=== PATIENT | male | born 1990 | race Caucasian/White ===

== ENCOUNTER 2021-11-29 22:21 | Emergency (ER) | payer MEDICAID ==
[~2021-11-29] VITALS: Ht 188 cm; Wt 112.4 kg
[~2021-11-29 22:21] MED LIST: METH-360 PO
[2021-11-29 23:18] VITALS: BP 169/118
[2021-11-30] MEDS ORDERED: acetaminophen 325mg tablet PO ONE (00:05)
[2021-11-30] MEDS ORDERED: ketorolac tromethamine 15mg/ml inj. IM ONE (00:05)
[2021-11-30] MEDS ORDERED: dexamethasone 4mg tablet PO ONE (00:05)
[2021-11-30] MEDS ORDERED: amoxicillin 250mg capsule PO ONE (00:05)
[2021-11-30] MEDS ORDERED: HYDR-3965 PO (00:06)
[2021-11-30] MEDS ORDERED: AMOX500C2 PO (00:06)
[2021-11-30] MEDS ORDERED: ONDA4TAB6 PO (00:06)
[2021-11-30] MEDS ORDERED: METH4TAB81 PO (00:06)
== END 2021-11-30 00:24 | disposition home or self-care (01) ==
LOC: ER 22:22
DX: K08.89 Other specified disorders of teeth and supporting structures (principal); K02.9 Dental caries, unspecified; K04.7 Periapical abscess without sinus; R41.0 Disorientation, unspecified; Z98.890 Other specified postprocedural states; Z79.2 Long term (current) use of antibiotics; Z79.899 Other long term (current) drug therapy
CPT/HCPCS: 96372; 99284; J1885

== ENCOUNTER 2023-05-13 06:49 | Emergency (ER) | payer MEDICAID ==
[~2023-05-13] VITALS: Ht 188 cm; Wt 113.6 kg
[~2023-05-13 06:49] MED LIST changes: +METH4TAB81 PO; +ONDA4TAB6 PO
[2023-05-13 07:45] LABS: CLARITY,URINE SLIGHTLY CLOUDY (Clear); COLOR,URINE YELLOW (Yellow); GLUCOSE, URINE NEGATIVE (Neg); KETONES,URINE NEGATIVE (Neg); LEUKOCYTE ESTERASE ,URINE NEGATIVE (Neg); NITRITES, URINE NEGATIVE (Neg); OCCULT BLOOD,URINE LARGE (Neg); PH,URINE 5.5 (4.8-8.0); PROTEIN,URINE TRACE mg/dl (Neg); UA COLLECTION TYPE CLN CATCH MIDSTREAM; UROBILINOGEN,URINE 0.2 E.U/dL (0.2-1.0)
[2023-05-13 07:56] LABS: BACTERIA,URINE 1+ /HPF (Neg); MUCUS STRANDS MODERATE /LPF (Neg); RBC,URINE TNTC /HPF (0-2); SQUAMOUS EPITHELIAL CELL,UR MODERATE /LPF (FEW)
[2023-05-13] MEDS ORDERED: normal saline 1000ML IV soln IVB ONE ×2 (08:50→09:25)
[2023-05-13] MEDS ORDERED: ketorolac trometh. 30mg/ml inj. IV ONE (08:50)
[2023-05-13] MEDS ORDERED: ondansetron/PF 4mg/2ml inj IV ONE (08:50)
[2023-05-13 08:56] LABS: BASOPHILS # (AUTO) 0.1 X10'3 (0-0.2); BASOPHILS % (AUTO) 0.8 % (0-1); EOSINOPHILS # (AUTO) 0.1 X10'3 (0-0.9); HEMOGLOBIN 15.7 g/dl (14.0-17.9); LYMPHOCYTES # (AUTO) 1.8 X10'3 (1.1-4.8); LYMPHOCYTES % (AUTO) 26.4 % (21-51); MEAN CORPUSCULAR HEMOGLOBIN 30.7 PG (27.0-31.0); MEAN CORPUSCULAR HGB CONC 34.2 g/dL (33.0-36.5); MEAN CORPUSCULAR VOLUME 89.9 FL (78-98); MEAN PLATELET VOLUME 8.2 FL (7.4-10.4); MONOCYTES # (AUTO) 0.5 X10'3 (0-0.9); MONOCYTES % (AUTO) 6.6 % (2-12); NEUTROPHILS # (AUTO) 4.5 X10'3 (1.8-7.7); NEUTROPHILS % (AUTO) 64.2 % (42-75); PLATELET COUNT 183 X10'3 (140-440); RED BLOOD COUNT 5.12 X10'6 (4.70-6.10); RED CELL DISTRIBUTION WIDTH 12.9 % (11.5-14.5)
[2023-05-13] MEDS ORDERED: tamsulosin 0.4mg capsule PO STA (09:22)
[2023-05-13] MEDS ORDERED: oxyCODONE/APAP 5-325mg tablet PO ONE (09:25)
[2023-05-13] MEDS ORDERED: OXYC-145 PO (09:30)
[2023-05-13] MEDS ORDERED: NAPR-56 PO (09:30)
[2023-05-13] MEDS ORDERED: FLO0.4C PO (09:30)
[2023-05-13] MEDS ORDERED: ONDA4TAB12 PO (09:30)
--- NOTE | 2023-05-13 09:41 | NUR ---
leslye approved pt to take percocet at home. 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
[2023-05-13 10:50] VITALS: BP 156/89
[2023-05-13 11:29] LABS: ALANINE AMINOTRANSFERASE 157 U/L (12-78); ALBUMIN 4.2 G/DL (3.4-5.0); ALBUMIN/GLOBULIN RATIO 1.2 (1.1-1.5); ALKALINE PHOSPHATASE 85 IU/L (46-116); ANION GAP 10 (8-16); ASPARTATE AMINO TRANSFERASE 55 U/L (10-37); BILIRUBIN,TOTAL 0.6 MG/DL (0.1-1.0); BLOOD UREA NITROGEN 12 MG/DL (7-18); BUN/CREATININE RATIO 12.4 (10.0-20.0); CALCIUM 8.9 MG/DL (8.5-10.1); CHLORIDE 107 MMOL/L (99-107); CREATININE 0.97 MG/DL (0.60-1.10); GLUCOSE 152 MG/DL (70-104); POTASSIUM 4.3 MMOL/L (3.5-5.1); SODIUM 140 MMOL/L (135-145); TOTAL CARBON DIOXIDE 23.3 MMOL/L (24-32); TOTAL PROTEIN 7.6 G/DL (6.4-8.2); eGFR 89 ML/MIN
[2023-05-13 11:50] LABS: LIPASE 88 U/L (73-393)
== END 2023-05-13 10:51 | disposition home or self-care (01) ==
LOC: ER 06:50
DX: N20.0 Calculus of kidney (principal); Z98.890 Other specified postprocedural states; Z72.89 Other problems related to lifestyle; Z79.899 Other long term (current) drug therapy
CPT/HCPCS: 36415; 74176; 80053; 81001; 83690; 85025; 87088; 96374; 96375; 99285; J1885; J2405; J7030

== ENCOUNTER 2023-05-18 09:29 | Emergency (ER) | payer MEDICAID ==
[~2023-05-18] VITALS: Ht 188 cm; Wt 118.2 kg
[~2023-05-18 09:29] MED LIST changes: +FLO0.4C PO; +NAPR-56 PO; +ONDA4TAB12 PO; +OXYC-145 PO
[2023-05-18] MEDS ORDERED: tamsulosin 0.4mg capsule PO STA (12:18)
[2023-05-18] MEDS ORDERED: normal saline 1000ML IV soln IV ONE (12:20)
[2023-05-18] MEDS ORDERED: ondansetron/PF 4mg/2ml inj IV ONE (12:25)
[2023-05-18] MEDS ORDERED: ketorolac trometh. 30mg/ml inj. IV ONE (12:25)
[2023-05-18 12:35] LABS: BASOPHILS # (AUTO) 0.1 X10'3 (0-0.2); BASOPHILS % (AUTO) 0.7 % (0-1); EOSINOPHILS # (AUTO) 0.1 X10'3 (0-0.9); EOSINOPHILS % (AUTO) 1.2 % (0-6); HEMATOCRIT 48.6 % (42.0-52.0); HEMOGLOBIN 16.5 g/dl (14.0-17.9); LYMPHOCYTES % (AUTO) 17.9 % (21-51); MEAN CORPUSCULAR HEMOGLOBIN 30.4 PG (27.0-31.0); MEAN CORPUSCULAR HGB CONC 33.9 g/dL (33.0-36.5); MEAN CORPUSCULAR VOLUME 89.4 FL (78-98); MEAN PLATELET VOLUME 8.2 FL (7.4-10.4); MONOCYTES # (AUTO) 1.1 X10'3 (0-0.9); NEUTROPHILS % (AUTO) 70.2 % (42-75); PLATELET COUNT 205 X10'3 (140-440); RED BLOOD COUNT 5.43 X10'6 (4.70-6.10); RED CELL DISTRIBUTION WIDTH 12.8 % (11.5-14.5); WHITE BLOOD COUNT 11.4 X10'3 (4.5-11.0)
[2023-05-18 12:45] LABS: ALANINE AMINOTRANSFERASE 142 U/L (12-78); ALBUMIN 4.5 G/DL (3.4-5.0); ALBUMIN/GLOBULIN RATIO 1.4 (1.1-1.5); ALKALINE PHOSPHATASE 89 IU/L (46-116); ANION GAP 12 (8-16); ASPARTATE AMINO TRANSFERASE 50 U/L (10-37); BILIRUBIN,TOTAL 0.6 MG/DL (0.1-1.0); BLOOD UREA NITROGEN 11 MG/DL (7-18); BUN/CREATININE RATIO 8.7 (10.0-20.0); CALCIUM 9.2 MG/DL (8.5-10.1); CHLORIDE 103 MMOL/L (99-107); CREATININE 1.27 MG/DL (0.60-1.10); GLUCOSE 122 MG/DL (70-104); POTASSIUM 4.4 MMOL/L (3.5-5.1); SODIUM 141 MMOL/L (135-145); TOTAL CARBON DIOXIDE 26.3 MMOL/L (24-32); TOTAL PROTEIN 7.8 G/DL (6.4-8.2); eGFR 65 ML/MIN
[2023-05-18] MEDS ORDERED: oxyCODONE/APAP 5-325mg tablet PO ONE (13:50)
[2023-05-18 14:03] LABS: CLARITY,URINE CLEAR (Clear); COLOR,URINE YELLOW (Yellow); GLUCOSE, URINE NEGATIVE (Neg); KETONES,URINE NEGATIVE (Neg); LEUKOCYTE ESTERASE ,URINE NEGATIVE (Neg); NITRITES, URINE NEGATIVE (Neg); OCCULT BLOOD,URINE SMALL (Neg); PROTEIN,URINE NEGATIVE (Neg); UROBILINOGEN,URINE 0.2 E.U/dL (0.2-1.0)
[2023-05-18 14:05] LABS: UA COLLECTION TYPE CLN CATCH MIDSTREAM
[2023-05-18 14:13] LABS: MUCUS STRANDS MODERATE /LPF (Neg); SQUAMOUS EPITHELIAL CELL,UR FEW /LPF (FEW)
[2023-05-18 14:14] LABS: BACTERIA,URINE FEW /HPF (Neg)
[2023-05-18 14:15] LABS: WBC,URINE 0-4 /HPF (0-4)
[2023-05-18] MEDS ORDERED: cloNIDine 0.1 mg tablet PO ONE (14:35)
[2023-05-18] MEDS ORDERED: ONDA4TAB12 PO (14:54)
[2023-05-18] MEDS ORDERED: OXYC-145 PO (14:54)
[2023-05-18] MEDS ORDERED: LISI20TA28 PO (14:56)
[2023-05-18 15:17] VITALS: BP 170/96
== END 2023-05-18 15:17 | disposition home or self-care (01) ==
LOC: ER 09:30
DX: N20.0 Calculus of kidney (principal); I10 Essential (primary) hypertension
CPT/HCPCS: 36415; 76770; 80053; 81001; 84145; 85025; 96374; 96375; 99285; J1885; J2405; J7030

== ENCOUNTER 2024-07-14 17:47 | Emergency (ER) | payer MEDICAID ==
[~2024-07-14] VITALS: Ht 188 cm; Wt 111.5 kg
[~2024-07-14 17:47] MED LIST changes: -FLO0.4C PO; -NAPR-56 PO; +ONDA-243 PO; -ONDA4TAB12 PO
[2024-07-14 18:20] LABS: BASOPHILS # (AUTO) 0.1 X10'3 (0-0.2); BASOPHILS % (AUTO) 0.9 % (0-1); EOSINOPHILS # (AUTO) 0.2 X10'3 (0-0.9); EOSINOPHILS % (AUTO) 2.4 % (0-6); HEMATOCRIT 41.8 % (42.0-52.0); HEMOGLOBIN 14.2 g/dl (14.0-17.9); LYMPHOCYTES # (AUTO) 2.9 X10'3 (1.1-4.8); LYMPHOCYTES % (AUTO) 36.1 % (21-51); MEAN CORPUSCULAR HEMOGLOBIN 30.2 PG (27.0-31.0); MEAN CORPUSCULAR HGB CONC 33.9 g/dL (33.0-36.5); MEAN CORPUSCULAR VOLUME 89.1 FL (78-98); MEAN PLATELET VOLUME 7.8 FL (7.4-10.4); MONOCYTES # (AUTO) 0.8 X10'3 (0-0.9); MONOCYTES % (AUTO) 9.8 % (2-12); NEUTROPHILS # (AUTO) 4.1 X10'3 (1.8-7.7); NEUTROPHILS % (AUTO) 50.8 % (42-75); PLATELET COUNT 207 X10'3 (140-440); RED BLOOD COUNT 4.69 X10'6 (4.70-6.10); RED CELL DISTRIBUTION WIDTH 13.2 % (11.5-14.5)
[2024-07-14 18:30] LABS: BILIRUBIN,URINE NEGATIVE (Neg); CLARITY,URINE SLIGHTLY CLOUDY (Clear); COLOR,URINE YELLOW (Yellow); GLUCOSE, URINE NEGATIVE (Neg); KETONES,URINE NEGATIVE (Neg); LEUKOCYTE ESTERASE ,URINE NEGATIVE (Neg); NITRITES, URINE NEGATIVE (Neg); OCCULT BLOOD,URINE MODERATE (Neg); PH,URINE 5.5 (4.8-8.0); PROTEIN,URINE TRACE mg/dl (Neg); UROBILINOGEN,URINE 0.2 E.U/dL (0.2-1.0)
[2024-07-14 18:41] LABS: UA COLLECTION TYPE NON-SPECIFIED
[2024-07-14] MEDS: phenazopyridine 100mg tablet PO ONE (18:44)
[2024-07-14] MEDS: ketorolac trometh 15mg/ml vial 15 MG/ML ML IM ONE (18:44)
[2024-07-14 18:45] LABS: BACTERIA,URINE FEW /HPF (Neg); MUCUS STRANDS FEW /LPF (Neg); RBC,URINE 20-50 /HPF (0-2); SQUAMOUS EPITHELIAL CELL,UR FEW /LPF (FEW); WBC,URINE 0-4 /HPF (0-4)
[2024-07-14 18:45] LABS: ALANINE AMINOTRANSFERASE 104 U/L (12-78); ALBUMIN 4.1 G/DL (3.4-5.0); ALBUMIN/GLOBULIN RATIO 1.3 (1.1-1.5); ALKALINE PHOSPHATASE 60 IU/L (46-116); ANION GAP 10 (8-16); ASPARTATE AMINO TRANSFERASE 43 U/L (10-37); BILIRUBIN,TOTAL 0.7 MG/DL (0.1-1.0); BLOOD UREA NITROGEN 11 MG/DL (7-18); BUN/CREATININE RATIO 10.9 (10.0-20.0); CALCIUM 8.9 MG/DL (8.5-10.1); CHLORIDE 107 MMOL/L (99-107); CREATININE 1.01 MG/DL (0.60-1.10); GLUCOSE 119 MG/DL (70-104); POTASSIUM 3.8 MMOL/L (3.5-5.1); SODIUM 142 MMOL/L (135-145); TOTAL CARBON DIOXIDE 25.3 MMOL/L (24-32); TOTAL PROTEIN 7.3 G/DL (6.4-8.2); eCRCL 119 ML/MIN; eGFR 84 ML/MIN
[2024-07-14] MEDS: ondansetron 4mg rapidly disintigrating tab PO ONE (18:48)
[2024-07-14] MEDS ORDERED: PHEN-716 PO (18:55)
[2024-07-14 19:17] VITALS: BP 137/89; PULSE 88; RESP 16; TEMP 98.8; O2SAT 98
== END 2024-07-14 19:20 | disposition home or self-care (01) ==
LOC: ER 17:47
DX: N23 Unspecified renal colic (principal); Z79.899 Other long term (current) drug therapy
CPT/HCPCS: 36415; 80053; 81001; 85025; 96372; 99283; J1885

== ENCOUNTER 2024-08-02 16:38 | Emergency (ER) | payer MEDICAID ==
[~2024-08-02] VITALS: Ht 188 cm; Wt 108.7 kg
[~2024-08-02 16:38] MED LIST changes: +PHEN-716 PO
[2024-08-02 17:20] LABS: COLOR,URINE ORANGE (Yellow); UA COLLECTION TYPE CLN CATCH MIDSTREAM
[2024-08-02 17:21] LABS: CLARITY,URINE SLIGHTLY CLOUDY (Clear)
[2024-08-02 17:27] LABS: SQUAMOUS EPITHELIAL CELL,UR FEW /LPF (FEW)
[2024-08-02 17:31] LABS: WBC,URINE 0-4 /HPF (0-4)
[2024-08-02 17:32] LABS: BACTERIA,URINE FEW /HPF (Neg)
[2024-08-02] MEDS ORDERED: ondansetron/PF 4mg/2ml inj IV ONE (18:05)
[2024-08-02] MEDS ORDERED: ketorolac trometh 15mg/ml vial 15 MG/ML ML IV ONE (18:05)
[2024-08-02] MEDS ORDERED: ketorolac trometh 30MG/ML vial 30 MG/ML VIAL IV ONE (18:10)
[2024-08-02 18:11] LABS: BASOPHILS # (AUTO) 0.1 X10'3 (0-0.2); BASOPHILS % (AUTO) 0.5 % (0-1); EOSINOPHILS # (AUTO) 0.3 X10'3 (0-0.9); EOSINOPHILS % (AUTO) 2.3 % (0-6); HEMATOCRIT 42.9 % (42.0-52.0); HEMOGLOBIN 14.3 g/dl (14.0-17.9); LYMPHOCYTES # (AUTO) 2.5 X10'3 (1.1-4.8); LYMPHOCYTES % (AUTO) 22.6 % (21-51); MEAN CORPUSCULAR HEMOGLOBIN 29.9 PG (27.0-31.0); MEAN CORPUSCULAR HGB CONC 33.4 g/dL (33.0-36.5); MEAN CORPUSCULAR VOLUME 89.5 FL (78-98); MEAN PLATELET VOLUME 8.3 FL (7.4-10.4); MONOCYTES # (AUTO) 1.2 X10'3 (0-0.9); MONOCYTES % (AUTO) 10.5 % (2-12); NEUTROPHILS % (AUTO) 64.1 % (42-75); PLATELET COUNT 215 X10'3 (140-440); RED BLOOD COUNT 4.79 X10'6 (4.70-6.10); RED CELL DISTRIBUTION WIDTH 13.3 % (11.5-14.5)
[2024-08-02 18:19] LABS: ALANINE AMINOTRANSFERASE 110 U/L (12-78); ALBUMIN/GLOBULIN RATIO 1.2 (1.1-1.5); ALKALINE PHOSPHATASE 63 IU/L (46-116); AMYLASE 72 U/L (25-115); ANION GAP 9 (8-16); ASPARTATE AMINO TRANSFERASE 43 U/L (10-37); BILIRUBIN,TOTAL 0.6 MG/DL (0.1-1.0); BLOOD UREA NITROGEN 9 MG/DL (7-18); BUN/CREATININE RATIO 6.2 (10.0-20.0); CHLORIDE 107 MMOL/L (99-107); CREATININE 1.45 MG/DL (0.60-1.10); GLUCOSE 133 MG/DL (70-104); LIPASE 111 U/L (16-77); POTASSIUM 4.3 MMOL/L (3.5-5.1); SODIUM 145 MMOL/L (135-145); TOTAL CARBON DIOXIDE 28.7 MMOL/L (24-32); TOTAL PROTEIN 7.3 G/DL (6.4-8.2); eCRCL 83 ML/MIN; eGFR 55 ML/MIN
[2024-08-02] MEDS: ketorolac trometh 30MG/ML vial 30 MG/ML VIAL IV ONE (18:50)
[2024-08-02] MEDS: ondansetron 4mg rapidly disintigrating tab PO ONE (18:50)
[2024-08-02] MEDS: CefTRIAXone 1000mg IM Kit (w/lidocaine diluent) IM ONE (20:23)
[2024-08-02] MEDS ORDERED: HYDR-3965 PO (20:24)
[2024-08-02 20:42] VITALS: BP 141/89; PULSE 83; RESP 16; TEMP 98.1; O2SAT 96
== END 2024-08-02 20:43 | disposition home or self-care (01) ==
LOC: ER 16:38
DX: N20.0 Calculus of kidney (principal); Z79.899 Other long term (current) drug therapy
CPT/HCPCS: 36415; 74176; 76700; 80053; 81001; 82150; 83690; 85025; 96372; 96374; 99285; J0696; J1885

== ENCOUNTER 2025-02-27 09:12 | Emergency (ER) | payer MEDICAID ==
[~2025-02-27] VITALS: Ht 190.5 cm; Wt 111.2 kg
[2025-02-27 10:45] LABS: BASOPHILS # (AUTO) 0.1 X10'3 (0-0.2); BASOPHILS % (AUTO) 0.4 % (0-1); EOSINOPHILS # (AUTO) 0.1 X10'3 (0-0.9); EOSINOPHILS % (AUTO) 0.7 % (0-6); HEMATOCRIT 45.9 % (42.0-52.0); HEMOGLOBIN 15.6 g/dl (14.0-17.9); LYMPHOCYTES # (AUTO) 2.4 X10'3 (1.1-4.8); LYMPHOCYTES % (AUTO) 19.5 % (21-51); MEAN CORPUSCULAR HEMOGLOBIN 30.2 PG (27.0-31.0); MEAN PLATELET VOLUME 8.5 FL (7.4-10.4); NEUTROPHILS # (AUTO) 8.7 X10'3 (1.8-7.7); NEUTROPHILS % (AUTO) 71.4 % (42-75); PLATELET COUNT 227 X10'3 (140-440); RED BLOOD COUNT 5.16 X10'6 (4.70-6.10); RED CELL DISTRIBUTION WIDTH 12.9 % (11.5-14.5); WHITE BLOOD COUNT 12.2 X10'3 (4.5-11.0)
[2025-02-27] MEDS: ketorolac trometh 15mg/ml vial 15 MG/ML ML IV ONE (10:51)
[2025-02-27 10:55] LABS: ALANINE AMINOTRANSFERASE 113 U/L (12-78); ALBUMIN 4.3 G/DL (3.4-5.0); ALBUMIN/GLOBULIN RATIO 1.1 (1.1-1.5); ALKALINE PHOSPHATASE 75 IU/L (46-116); ANION GAP 7 (8-16); ASPARTATE AMINO TRANSFERASE 40 U/L (10-37); BILIRUBIN,TOTAL 1.2 MG/DL (0.1-1.0); BLOOD UREA NITROGEN 14 MG/DL (7-18); BUN/CREATININE RATIO 9.3 (10.0-20.0); CALCIUM 8.9 MG/DL (8.5-10.1); CHLORIDE 105 MMOL/L (99-107); GLUCOSE 143 MG/DL (70-104); LIPASE 36 U/L (16-77); POTASSIUM 4.4 MMOL/L (3.5-5.1); SODIUM 138 MMOL/L (135-145); TOTAL CARBON DIOXIDE 26.3 MMOL/L (24-32); TOTAL PROTEIN 8.3 G/DL (6.4-8.2); eCRCL 81 ML/MIN; eGFR 53 ML/MIN
[2025-02-27] MEDS: ondansetron/PF 4mg/2ml inj IV PRN (11:48)
[2025-02-27] MEDS: normal saline 1000ML IV soln IVB ONE (11:48)
[2025-02-27 11:58] LABS: BILIRUBIN,URINE SMALL (Neg); CLARITY,URINE TURBID (Clear); COLOR,URINE YELLOW (Yellow); GLUCOSE, URINE NEGATIVE (Neg); KETONES,URINE >=80 mg/dl (Neg); LEUKOCYTE ESTERASE ,URINE NEGATIVE (Neg); NITRITES, URINE NEGATIVE (Neg); OCCULT BLOOD,URINE TRACE-INTACT (Neg); PROTEIN,URINE TRACE mg/dl (Neg); UROBILINOGEN,URINE 0.2 E.U/dL (0.2-1.0)
[2025-02-27] MEDS ORDERED: HYDR-3965 PO (12:02)
[2025-02-27] MEDS ORDERED: FLO0.4C PO (12:02)
[2025-02-27] MEDS ORDERED: IBUP-1986 PO (12:02)
[2025-02-27 12:03] LABS: UA COLLECTION TYPE VOIDED
[2025-02-27 12:05] LABS: AMORPHOUS URATES 4+; BACTERIA,URINE 2+ /HPF (Neg); RBC,URINE 0-2 /HPF (0-2); SQUAMOUS EPITHELIAL CELL,UR NONE SEEN /LPF (FEW); WBC,URINE NONE SEEN /HPF (0-4)
[2025-02-27 13:09] VITALS: BP 124/78; PULSE 85; RESP 16; TEMP 97.1; O2SAT 98
[2025-02-27] MEDS ORDERED: ONDA-243 PO (14:25)
== END 2025-02-27 13:11 | disposition home or self-care (01) ==
LOC: ER 09:13
DX: N20.9 Urinary calculus, unspecified (principal)
CPT/HCPCS: 36415; 74176; 80053; 81001; 83690; 85025; 96361; 96374; 96375; 99285; J1885; J2405; J7030

== ENCOUNTER 2025-03-03 16:23 | Emergency (ER) | payer MEDICAID ==
[~2025-03-03] VITALS: Ht 190.5 cm; Wt 108.0 kg
[~2025-03-03 16:23] MED LIST changes: +IBUP-1986 PO; +TAMS-55 PO
[2025-03-03] MEDS ORDERED: CefTRIAXone 2gm/D5W 50ml BAG 50 ML IV SCH (16:40)
[2025-03-03] MEDS: acetaminophen 325mg tablet PO ONE (16:43)
[2025-03-03 17:06] LABS: BASOPHILS % (AUTO) 0.4 % (0-1); EOSINOPHILS % (AUTO) 0.1 % (0-6); HEMATOCRIT 42.9 % (42.0-52.0); LYMPHOCYTES # (AUTO) 1.4 X10'3 (1.1-4.8); LYMPHOCYTES % (AUTO) 20.4 % (21-51); MEAN CORPUSCULAR HEMOGLOBIN 30.4 PG (27.0-31.0); MEAN CORPUSCULAR VOLUME 86.8 FL (78-98); MEAN PLATELET VOLUME 8.1 FL (7.4-10.4); MONOCYTES % (AUTO) 15.1 % (2-12); NEUTROPHILS # (AUTO) 4.3 X10'3 (1.8-7.7); PLATELET COUNT 168 X10'3 (140-440); RED BLOOD COUNT 4.95 X10'6 (4.70-6.10); RED CELL DISTRIBUTION WIDTH 12.7 % (11.5-14.5); WHITE BLOOD COUNT 6.7 X10'3 (4.5-11.0)
[2025-03-03 17:14] LABS: ANION GAP 8 (8-16); BLOOD UREA NITROGEN 11 MG/DL (7-18); BUN/CREATININE RATIO 9.6 (10.0-20.0); CALCIUM 8.9 MG/DL (8.5-10.1); CHLORIDE 99 MMOL/L (99-107); CREATININE 1.15 MG/DL (0.60-1.10); GLUCOSE 122 MG/DL (70-104); POTASSIUM 3.7 MMOL/L (3.5-5.1); SODIUM 133 MMOL/L (135-145); TOTAL CARBON DIOXIDE 25.9 MMOL/L (24-32); eCRCL 103 ML/MIN; eGFR 72 ML/MIN
[2025-03-03 17:20] LABS: BILIRUBIN,URINE NEGATIVE (Neg); CLARITY,URINE CLEAR (Clear); COLOR,URINE YELLOW (Yellow); GLUCOSE, URINE NEGATIVE (Neg); KETONES,URINE 40 mg/dl (Neg); LEUKOCYTE ESTERASE ,URINE NEGATIVE (Neg); NITRITES, URINE NEGATIVE (Neg); OCCULT BLOOD,URINE SMALL (Neg); PROTEIN,URINE TRACE mg/dl (Neg); UA COLLECTION TYPE CLN CATCH MIDSTREAM; UROBILINOGEN,URINE 0.2 E.U/dL (0.2-1.0)
[2025-03-03 17:27] LABS: WBC,URINE 0-4 /HPF (0-4)
[2025-03-03 17:28] LABS: BACTERIA,URINE FEW /HPF (Neg); FINE GRANULAR CAST 0-3 /LPF (NEGATIVE); HYALINE CASTS 0-3 /LPF (NEGATIVE); MUCUS STRANDS MODERATE /LPF (Neg); SQUAMOUS EPITHELIAL CELL,UR NONE SEEN /LPF (FEW)
[2025-03-03] MEDS: normal saline 1000ML IV soln IVB ONE (17:37)
[2025-03-03] MEDS: acetaminophen 1,000mg/100ml IV 100 ML IV ONE (17:45)
[2025-03-03] MEDS: ketorolac trometh 30MG/ML vial 30 MG/ML VIAL IV ONE (18:21)
[2025-03-03 18:39] VITALS: BP 135/80; PULSE 110; O2SAT 96
[2025-03-03 19:02] VITALS: RESP 16
[2025-03-03 19:06] VITALS: TEMP 100
== END 2025-03-03 19:06 | disposition home or self-care (01) ==
LOC: ER 16:24
DX: J06.9 Acute upper respiratory infection, unspecified (principal); R10.9 Unspecified abdominal pain
CPT/HCPCS: 36415; 71045; 80048; 81001; 83605; 84145; 85025; 87040; 96361; 96374; 99284; J1885; J7030; J0131